=== PATIENT | female | born 1980 | race Hispanic/Latino ===

== ENCOUNTER 2017-02-15 07:20 | Day surgery (SDC) | payer MEDICAID ==
[~2017-02-15 07:20] MED LIST: XYLOCAINE MPF 2% ONE; ZOFRAN ONE
[2017-02-15] MEDS ORDERED: DIPRIVAN 10 MG/ML IV ONE ×2 (08:33→09:26)
[2017-02-15] MEDS ORDERED: WATER FOR IRRIG STERILE IR ONE (09:02)
[2017-02-15] MEDS ORDERED: NACL 0.9% 1000 ML 1,000 ML IV SCH (09:34)
--- NOTE | 2017-02-15 09:41 | Post Operative Note ---
Pre-op diagnosis: dysphagia Post-op diagnosis: other (peptic stricture, large hiatal hernia, gastritis) Findings: peptic stricture near GE junction, s/p dilatation iwith 18-19-20mm balloon Large hiatal hernia Gastritis Procedure: EGD with dilatation Anesthesia: MAC Surgeon: LAURA BAEZ Estimated blood loss: minimal Pathology: none Condition: stable Disposition: same day
[2017-02-15] MEDS ORDERED: VERSED ONE (09:51)
--- NOTE | 2017-02-15 10:07 | Anesthesia Consultation ---
Anesthesia Consult and Med Hx Date of service: 02/15/17 - Airway Anesthetic Teeth Evaluation: Good ROM Head & Neck: Adequate Mental/Hyoid Distance: Adequate Mallampati Class: Class II Intubation Access Assessment: Probably Good - Pulmonary Exam CTA: Yes - Cardiac Exam Cardiac Exam: RRR - Pre-Operative Health Status ASA Pre-Surgery Classification: ASA3 Proposed Anesthetic Plan: MAC - Pulmonary Hx Smoking: No - Cardiovascular System Hx Hypertension: Yes Hx Heart Attack/AMI: No - Central Nervous System Hx Psychiatric Problems: Yes (anxiety) - Endocrine Hx Renal Disease: No Hx Liver Disease: No Hx Non-Insulin Dependent Diabetes: No - Hematic Hx Anemia: Yes - Other Systems Hx Obesity: Yes - Additional Comments Anesthesia Medical History Comments: PONV, collapsed lungs after ERCP (2007) required prolonged hospital stays
--- NOTE | 2017-02-15 10:07 | Anesthesia Day of Surgery ---
Anesthesia Day of Surgery - Day of Surgery Patient Examined: Yes Patient H&P Reviewed: Yes Patient is NPO: Yes
[2017-02-15 10:15] VITALS: BP 117/70
--- NOTE | 2017-02-15 10:50 | Operative Report ---
PROCEDURE: EGD. PREOPERATIVE DIAGNOSIS: Dysphagia. POSTOPERATIVE DIAGNOSES: Peptic stricture in the lower third of the esophagus, large hiatal hernia, gastritis. ANESTHESIA: Monitored anesthesia care. ESTIMATED BLOOD LOSS: Minimal. COMPLICATIONS: The patient had a transient episode of desaturation at which time procedure was aborted. Once patient's vital signs stabilized, the procedure was then complete with no immediate complications. DESCRIPTION OF PROCEDURE: After consent was obtained, the patient was placed in left lateral decubitus position. The standard upper Fujinon scope was advanced through the mouth and advanced to the second portion of duodenum without difficulty. The views of the mucosa were fair. The patient tolerated the procedure poorly (as above). FINDINGS: There was a stricture in the lower third of the esophagus (suspected peptic stricture). Balloon dilatation was performed with 18, 19, 20 mm balloon. There is a large hiatal hernia. T Moderate erythematous mucosa in the gastric antrum. Due to the patient's respiratory status and difficulty with adequate sedation, biopsies were not obtained. IMPRESSION: 1. Peptic stricture, status post balloon dilatation up to 20 mm. 2. Large hiatal hernia. 3. Gastritis. RECOMMENDATIONS: 1. Start PPI twice a day for 1 month and then decrease to once a day dosing. 2. Stop NSAIDs. 3. Return to GI Clinic as previously scheduled. [facility]# [id number] KOFI/ILDEFONSO DEGROOT
[2017-02-15] MEDS ORDERED: ZOFRAN ONE (15:00)
--- NOTE | 2017-02-16 10:22 | Post Anesthesia Evaluation ---
- Post Anesthesia Evaluation Patient Participated: Yes Airway Patent: Yes Stable Respiratory Function: Yes Nausea/Vomiting: No Temp > 96.8F: Yes Pain Manageable: Yes Adequeate Hydration: Yes Anesthesia Complications: No Block Receding Appropriately: Not Applicable Patient on Ventilator: No
== END 2017-02-15 07:21 | disposition home or self-care (01) ==
LOC: GIO 07:20
PROVIDERS: ATTEND Internal Medicine Gastroenterology
DX: K22.2 Esophageal obstruction (principal); K29.70 Gastritis, unspecified, without bleeding; K44.9 Diaphragmatic hernia without obstruction or gangrene; D64.9 Anemia, unspecified; F32.9 Major depressive disorder, single episode, unspecified; F41.9 Anxiety disorder, unspecified; I10 Essential (primary) hypertension; K21.9 Gastro-esophageal reflux disease without esophagitis; G43.909 Migraine, unspecified, not intractable, without status migrainosus; E66.9 Obesity, unspecified; Z68.42 Body mass index [BMI] 45.0-49.9, adult; Z91.018 Allergy to other foods; Z98.51 Tubal ligation status; Z98.890 Other specified postprocedural states; Z79.899 Other long term (current) drug therapy; Z87.891 Personal history of nicotine dependence; Z72.89 Other problems related to lifestyle; Z83.79 Family history of other diseases of the digestive system
CPT/HCPCS: 43249; 81025; C1726; J2250; J2405; J2704; J7030